=== PATIENT | male | born 1995 | race African-American/Black ===

== ENCOUNTER 2022-06-23 21:23 | Emergency (ER) | payer OTHER ==
[2022-06-23] MEDS ORDERED: Lidocaine 1% (PF) 30 ML VIAL ONE (21:37)
[2022-06-23] MEDS ORDERED: Bacitracin 1 PK ONE (21:46)
== END 2022-06-23 22:22 ==
LOC: NAV ERS 21:23
DX: S01.511A Laceration without foreign body of lip, initial encounter (principal); K08.89 Other specified disorders of teeth and supporting structures; X58.XXXA Exposure to other specified factors, initial encounter
CPT/HCPCS: 40650; J2001